=== PATIENT | female | born 1955 | race African-American/Black ===

== ENCOUNTER → 2017-02-23 | Outpatient (CLI) | payer OTHER ==
[~2017-02-23] MED LIST: AMLODIPINE-BEN1 EACH PO; BUMETANIDE 0.50.5 M1 PO; CLONIDINE HCL0.2 M2 PO; KEFLEX500 MG PO; SYNTHROID 0.10.1 M1 PO; ZPAK PO
== END ==
LOC: RAD 01:57
DX: Z12.31 Encounter for screening mammogram for malignant neoplasm of breast (principal)

== ENCOUNTER → 2018-03-01 | Outpatient (CLI) | payer OTHER | LOC: RAD 01:31 | DX: Z12.31 Encounter for screening mammogram for malignant neoplasm of breast (principal) ==

== ENCOUNTER → 2019-05-02 | Outpatient (CLI) | payer OTHER | LOC: ULTRA 12:38 | DX: R09.89 Other specified symptoms and signs involving the circulatory and respiratory systems (principal) ==

== ENCOUNTER → 2019-05-05 | Outpatient (CLI) | payer OTHER | LOC: ULTRA 14:42 | DX: M79.89 Other specified soft tissue disorders (principal); M79.662 Pain in left lower leg ==

== ENCOUNTER → 2020-03-05 | Outpatient (CLI) | payer OTHER | LOC: RAD 09:24 | DX: Z12.31 Encounter for screening mammogram for malignant neoplasm of breast (principal) ==

== ENCOUNTER → 2020-03-31 | Outpatient (CLI) | payer OTHER ==
[~2020-03-31] VITALS: Ht 177.8 cm; Wt 89.8 kg
[~2020-03-31] MED LIST changes: +ADVIL200 M3 PO; +ASPIRIN EC325 M1 PO; +BUMETANIDE 1 MG1 M1 PO; +CELEBREX 200 M200 MG PO; +COZAAR 25 MG TA25 M1 PO; +COZAAR100 MG PO; +DUEXIS 800-26.1 EACH PO; +LEVO-T75 MCG PO; +LEVOXYL25 MCG PO; +MELOXICAM15 MG PO; +ROXICODONE5 MG PO; +ZETIA10 MG PO
[2020-03-31 10:13] VITALS: BP 178/78
--- NOTE | 2020-03-31 10:39 | NUR ---
Pain Clinic Assessment: 1. History of Osteoarthritis: BACK BOTH LEGS History of Rheumatoid Arthritis: Not Applicable 2. Height: 5 ft. 10 in. 177.8 cm. Weight: 198.0 lb. oz. 89.812 kg. Patient's BMI: 28.4 3. Vital Signs: BP: 178/78 Pulse: 76 Resp: 16 Temp: 02 Sat: 100 ECG Mon: 4. Pain Intensity: 8 5. Fall Risk: Dizziness: N Needs help standing or walking: Y Fallen in the last 3 months: N Fall risk comments: 6. Patient on Blood Thinner: None 7. History of Hypertension: Y 8. Opioid Therapy greater than 6 weeks: N Opiate Contract Signed: 9. Risk Assessment Tool Provided: LOW RISK 08/29 10. Functional Assessment Tool: 11. Recreational Drug Use: Never Drug Type: Tobacco Use: Never Smoker Tobacco Type: Amount or Packs/day: How Many Years: Alcohol Use: No Frequency: Quant:
--- NOTE | 2020-04-13 08:23 | HPC ---
[facility] [address] [place] [address] PAIN MANAGEMENT CONSULTATION Name: ANGELES ANDREA Room #: REG CAROL PinoJonathanSyJonathan#: [id number] Admission: 03/31/20 Attend Phys: Dago Cross MD Discharge: Date of : 55 Report #: [id number] THIS REPORT FOR: cc: Robby Sánchez MD, Kirk D. MD Brown, N. Wayne MD ~ CC: Robby Cross DATE OF SERVICE: 03/31/2020 CHIEF COMPLAINT: Low back and left leg pain. HISTORY: The patient is a 64-year-old female who has been referred to the Pain Clinic because of pain and discomfort in the low back area. She has suffered from lumbar radicular pain in the past. She is having pain in the lower portion of her back that radiates down to the posterior portion of her legs. She rates the pain as an 8/10. Notes that the pain is worse when she is getting out of bed as well as while walking. Pain improves somewhat when she is sitting. She describes it as continuous, burning, aching and stabbing. She has been getting worse over the last year. She has been suffering from some bilateral knee pain. She has torn meniscus. She has undergone physical therapy. She has returned to the Pain Clinic for an evaluation. ALLERGIES: MORPHINE, NABUMETONE, TRAMADOL, SHRIMP. CURRENT MEDICATIONS: Cozaar 100 mg, bumetanide 1 mg, clonidine 0.2 mg b.i.d., Zetia, ibuprofen 200 mg, Deuxis 800/26.6 t.i.d., meloxicam 15 mg, and levothyroxine 75 mcg. PAST MEDICAL HISTORY: Thyroid disease, colon problems, and hypertension. PAST SURGICAL HISTORY: Hysterectomy, bilateral carpal tunnel surgery 2004, rectocele, cystocele, left knee surgery 2009, 2018, right knee surgery, 07/2019. 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 REVIEW OF SYSTEMS: GENERAL: Good health, recent weight changes, decreased appetite, wears glasses, constipation, varicose veins, thyroid disease. LABORATORY DATA: No new laboratory values are available, but MRI dated 01/2008 reveals large left lateral herniated nucleus pulposus, HNP, L4-L5. Small central HNP, L5-S1. [address] [address] PAIN MANAGEMENT CONSULTATION Name: ANGELES ANDREA Room #: REG CLLien Michael#: [id number] Admission: 03/31/20 Attend Phys: Dago Cross MD Discharge: Date of : 55 Report #: [id number] PAIN CLINIC ASSESSMENT AND PQRS: 1. History of osteoarthritis in the back and involving both knees. 2. History of rheumatoid arthritis. The patient is not being treated for rheumatoid arthritis. 3. Height 5 feet 10 inch, weight 198 pounds, BMI is 28.4. 4. Vital signs: Blood pressure 178/78, pulse 76, respiratory rate 16, room air saturations 100%. 5. Pain intensity, 8/10. 6. Fall history: The patient has not fallen in the last 3 months. 7. Blood thinner. The patient is not on a blood thinning medication. 8. Hypertension. The patient is being treated for hypertension. 9. Opioids greater than 6 weeks. The patient receives medication from her primary physician. 10. Risk assessment tool, low for opioid use. 11. Functional assessment tool, 49/70. 12. Recreational drug use. The patient denies. 13. Tobacco: The patient has never smoked. 14. Alcohol. The patient denies frequent use of alcoholic beverages. PHYSICAL EXAMINATION: GENERAL: The patient is a well-developed, well-nourished black female, appears her stated age. She is alert and oriented x 3. Her affect is appropriate. Speech is fluent. HEENT: Normocephalic, atraumatic. Extraocular eye muscles intact. Sclerae nonicteric. Mucous membranes are moist. NECK: Without adenopathy or JVD. HEART: Regular rate. LUNGS: Clear to auscultation. ABDOMEN: Nontender. MUSCULOSKELETAL: The patient is without significant scoliosis, kyphosis or lordosis. The patient has pain and discomfort in lower portion of her back. Has pain that radiates down the lateral portion of her right leg down into the calf area and notes some pain and discomfort radiating down on the right lateral portion of her leg and can radiate down into the area of the calf. IMPRESSION: 1. Lumbar radiculopathy, L4-L5 area. 2. Thyroid disease. 3. Colon problems. 4. Hypertension. RECOMMENDATIONS: We discussed treatment options with the patient. Risks and benefits of an epidural steroid injection were discussed. The patient elects to proceed with an epidural steroid injection [address] [address] PAIN MANAGEMENT CONSULTATION Name: ANGELES ANDRAE Room #: VALENTINO Rodriguez#: [id number] Admission: 03/31/20 Attend Phys: Dago Cross MD Discharge: Date of : 55 Report #: [id number] PROCEDURE NOTE: The patient was taken to the procedure area. Her back had been sterilely prepped with a Betadine solution. We had discussed the risks and benefits of the procedure. We had used a model to indicate the area of probable pathology. The patient was then assisted in getting on the examination table. Her back was sterilely prepped with a Betadine solution. Fluoroscopy using anterior, posterior as well as lateral viewing were implemented. A 17-gauge Tuohy with loss of resistance technique was advanced into the L4-L5 area, after this area had been sterilely prepped and infiltrated with 0.25% bupivacaine using a 25-gauge needle. After appropriate placement, a total of 80 mg Depo-Medrol, 40 mg triamcinolone and 2 mL of 0.25% bupivacaine was injected. The patient tolerated the procedure well. She remained in the Pain Clinic for an appropriate amount of time. A total of 13 seconds fluoro time was used. The patient's pain decreased to 0 at the time of discharge. She will follow up in the future as needed. <ELECTRONICALLY SIGNED> By: Dago Cross MD 04/13/20 0823 [id number] Dago Cross MD /nt
== END | disposition home or self-care (01) ==
LOC: PAIN 06:51
PROVIDERS: ATTEND Anesthesiology Pain Medicine
DX: M54.16 Radiculopathy, lumbar region (principal); G89.29 Other chronic pain; I10 Essential (primary) hypertension; E07.9 Disorder of thyroid, unspecified; M19.90 Unspecified osteoarthritis, unspecified site; Z98.890 Other specified postprocedural states; Z79.899 Other long term (current) drug therapy; Z88.8 Allergy status to other drugs, medicaments and biological substances

== ENCOUNTER → 2020-04-30 | Outpatient (CLI) | payer OTHER ==
[~2020-04-30] VITALS: Ht 177.8 cm; Wt 87.4 kg
[2020-04-30 08:52] VITALS: BP 148/84
--- NOTE | 2020-04-30 09:02 | NUR ---
Pain Clinic Assessment: 1. History of Osteoarthritis: BACK BOTH LEGS History of Rheumatoid Arthritis: Not Applicable 2. Height: 5 ft. 10 in. 177.8 cm. Weight: 192.6 lb. oz. 87.363 kg. Patient's BMI: 27.6 3. Vital Signs: BP: 148/84 Pulse: 76 Resp: 16 Temp: 02 Sat: 100 ECG Mon: 4. Pain Intensity: 8 5. Fall Risk: Dizziness: N Needs help standing or walking: Y Fallen in the last 3 months: N Fall risk comments: 6. Patient on Blood Thinner: None 7. History of Hypertension: Y 8. Opioid Therapy greater than 6 weeks: N Opiate Contract Signed: 9. Risk Assessment Tool Provided: LOW RISK 08/29 10. Functional Assessment Tool: 11. Recreational Drug Use: Never Drug Type: Tobacco Use: Never Smoker Tobacco Type: Amount or Packs/day: How Many Years: Alcohol Use: No Frequency: Quant:
== END | disposition home or self-care (01) ==
LOC: PAIN 06:53
PROVIDERS: ATTEND Anesthesiology Pain Medicine
DX: M54.16 Radiculopathy, lumbar region (principal); G89.29 Other chronic pain; Z98.890 Other specified postprocedural states; Z79.899 Other long term (current) drug therapy; Z88.8 Allergy status to other drugs, medicaments and biological substances

== ENCOUNTER → 2020-07-21 | Outpatient (CLI) | payer OTHER ==
[~2020-07-21] VITALS: Ht 177.8 cm; Wt 83.6 kg
[~2020-07-21] MED LIST changes: +APAP W/CODEINE1 TA2 PO; +MEDROLDOSEPACK PO
[2020-07-21 08:50] VITALS: BP 157/83
--- NOTE | 2020-07-21 09:11 | NUR ---
Pain Clinic Assessment: 1. History of Osteoarthritis: BACK BOTH LEGS History of Rheumatoid Arthritis: Not Applicable 2. Height: 5 ft. 10 in. 177.8 cm. Weight: 184.2 lb. oz. 83.553 kg. Patient's BMI: 26.4 3. Vital Signs: BP: 157/83 Pulse: 85 Resp: 20 Temp: 02 Sat: 100 ECG Mon: 4. Pain Intensity: 8 5. Fall Risk: Dizziness: N Needs help standing or walking: Y Fallen in the last 3 months: Y Fall risk comments: 6. Patient on Blood Thinner: None 7. History of Hypertension: Y 8. Opioid Therapy greater than 6 weeks: N Opiate Contract Signed: 9. Risk Assessment Tool Provided: LOW RISK 08/29 10. Functional Assessment Tool: 11. Recreational Drug Use: Never Drug Type: Tobacco Use: Never Smoker Tobacco Type: Amount or Packs/day: How Many Years: Alcohol Use: No Frequency: Quant:
== END | disposition home or self-care (01) ==
LOC: PAIN 06:40
PROVIDERS: ATTEND Anesthesiology Pain Medicine
DX: M54.16 Radiculopathy, lumbar region (principal); G89.29 Other chronic pain; E07.9 Disorder of thyroid, unspecified; I10 Essential (primary) hypertension; M19.90 Unspecified osteoarthritis, unspecified site; Z98.890 Other specified postprocedural states; Z90.710 Acquired absence of both cervix and uterus; Z79.899 Other long term (current) drug therapy

== ENCOUNTER 2020-08-21 11:42 | Emergency (ER) | payer OTHER ==
[~2020-08-21] VITALS: Ht 177.8 cm; Wt 81.7 kg
[~2020-08-21 11:42] MED LIST changes: -APAP W/CODEINE1 TA2 PO; -MEDROLDOSEPACK PO
[2020-08-21] MEDS ORDERED: MEDROLDOSEPACK PO (14:05)
[2020-08-21] MEDS ORDERED: APAP W/CODEINE1 TA2 PO (14:05)
[2020-08-21 14:12] VITALS: BP 185/69
== END 2020-08-21 14:14 | disposition home or self-care (01) ==
LOC: ER 11:42
DX: M54.32 Sciatica, left side (principal); Z90.711 Acquired absence of uterus with remaining cervical stump; Z79.899 Other long term (current) drug therapy; Z98.890 Other specified postprocedural states; Z88.5 Allergy status to narcotic agent; Z88.8 Allergy status to other drugs, medicaments and biological substances; Z91.013 Allergy to seafood

== ENCOUNTER 2020-09-04 09:59 | Emergency (ER) | payer OTHER ==
[~2020-09-04] VITALS: Ht 175.3 cm; Wt 81.7 kg
[~2020-09-04 09:59] MED LIST changes: +APAP W/CODEINE1 TA2 PO; +MEDROLDOSEPACK PO
[2020-09-04 10:07] VITALS: BP 198/106
== END 2020-09-04 10:40 | disposition home or self-care (01) ==
LOC: ER 09:59
DX: M54.32 Sciatica, left side (principal); M53.86 Other specified dorsopathies, lumbar region; I10 Essential (primary) hypertension; Z90.710 Acquired absence of both cervix and uterus; Z79.1 Long term (current) use of non-steroidal anti-inflammatories (NSAID); Z79.899 Other long term (current) drug therapy; Z88.5 Allergy status to narcotic agent; Z88.8 Allergy status to other drugs, medicaments and biological substances; Z91.013 Allergy to seafood

== ENCOUNTER → 2020-09-08 | Outpatient (CLI) | payer OTHER ==
[~2020-09-08] VITALS: Ht 177.8 cm; Wt 83.3 kg
[2020-09-08 11:03] VITALS: BP 174/80
--- NOTE | 2020-09-08 11:20 | NUR ---
Pain Clinic Assessment: 1. History of Osteoarthritis: BACK BOTH LEGS History of Rheumatoid Arthritis: Not Applicable 2. Height: 5 ft. 10 in. 177.8 cm. Weight: 183.6 lb. oz. 83.280 kg. Patient's BMI: 26.3 3. Vital Signs: BP: 174/80 Pulse: 87 Resp: 20 Temp: 02 Sat: 100 ECG Mon: 4. Pain Intensity: 7 5. Fall Risk: Dizziness: N Needs help standing or walking: Y Fallen in the last 3 months: N Fall risk comments: 6. Patient on Blood Thinner: None 7. History of Hypertension: Y 8. Opioid Therapy greater than 6 weeks: N Opiate Contract Signed: 9. Risk Assessment Tool Provided: LOW RISK 08/29 10. Functional Assessment Tool: 11. Recreational Drug Use: Never Drug Type: Tobacco Use: Former Smoker Tobacco Type: Amount or Packs/day: How Many Years: Alcohol Use: No Frequency: Quant:
== END | disposition home or self-care (01) ==
LOC: PAIN 06:52
PROVIDERS: ATTEND Anesthesiology Pain Medicine
DX: M54.16 Radiculopathy, lumbar region (principal); G89.29 Other chronic pain; I10 Essential (primary) hypertension; E07.9 Disorder of thyroid, unspecified; M19.90 Unspecified osteoarthritis, unspecified site; Z98.890 Other specified postprocedural states; Z79.899 Other long term (current) drug therapy; Z90.710 Acquired absence of both cervix and uterus; Z88.8 Allergy status to other drugs, medicaments and biological substances

== ENCOUNTER → 2020-12-29 | Outpatient (CLI) | payer OTHER ==
[~2020-12-29] VITALS: Ht 177.8 cm; Wt 84.6 kg
[2020-12-29 08:51] VITALS: BP 164/80
--- NOTE | 2020-12-29 09:07 | NUR ---
Pain Clinic Assessment: 1. History of Osteoarthritis: BACK BOTH LEGS History of Rheumatoid Arthritis: Not Applicable 2. Height: 5 ft. 10 in. 177.8 cm. Weight: 186.4 lb. oz. 84.551 kg. Patient's BMI: 26.7 3. Vital Signs: BP: 164/80 Pulse: 68 Resp: 16 Temp: 02 Sat: 100 ECG Mon: 4. Pain Intensity: 8 5. Fall Risk: Dizziness: N Needs help standing or walking: Y Fallen in the last 3 months: N Fall risk comments: 6. Patient on Blood Thinner: None 7. History of Hypertension: Y 8. Opioid Therapy greater than 6 weeks: N Opiate Contract Signed: 9. Risk Assessment Tool Provided: LOW RISK 08/29 10. Functional Assessment Tool: 11. Recreational Drug Use: Never Drug Type: Tobacco Use: Former Smoker Tobacco Type: Amount or Packs/day: How Many Years: Alcohol Use: No Frequency: Quant:
== END | disposition home or self-care (01) ==
LOC: PAIN 07:05
PROVIDERS: ATTEND Anesthesiology Pain Medicine
DX: M54.16 Radiculopathy, lumbar region (principal); G89.29 Other chronic pain; I10 Essential (primary) hypertension; M19.90 Unspecified osteoarthritis, unspecified site; E07.9 Disorder of thyroid, unspecified; Z98.890 Other specified postprocedural states; Z87.891 Personal history of nicotine dependence; Z79.899 Other long term (current) drug therapy; Z90.710 Acquired absence of both cervix and uterus; Z88.8 Allergy status to other drugs, medicaments and biological substances

== ENCOUNTER → 2021-02-04 | Outpatient (CLI) | payer OTHER ==
[~2021-02-04] VITALS: Ht 177.8 cm; Wt 84.8 kg
[2021-02-04 13:09] VITALS: BP 164/80
--- NOTE | 2021-02-04 13:45 | NUR ---
Pain Clinic Assessment: 1. History of Osteoarthritis: BACK BOTH LEGS History of Rheumatoid Arthritis: Not Applicable 2. Height: 5 ft. 10 in. 177.8 cm. Weight: 187.0 lb. oz. 84.823 kg. Patient's BMI: 26.8 3. Vital Signs: BP: 164/80 Pulse: 65 Resp: 18 Temp: 02 Sat: 100 ECG Mon: 4. Pain Intensity: 4 5. Fall Risk: Dizziness: Y Needs help standing or walking: N Fallen in the last 3 months: N Fall risk comments: 6. Patient on Blood Thinner: None 7. History of Hypertension: Y 8. Opioid Therapy greater than 6 weeks: N Opiate Contract Signed: 9. Risk Assessment Tool Provided: LOW RISK 08/29 10. Functional Assessment Tool: 11. Recreational Drug Use: Never Drug Type: Tobacco Use: Former Smoker Tobacco Type: Amount or Packs/day: How Many Years: Alcohol Use: No Frequency: Quant:
== END | disposition home or self-care (01) ==
LOC: PAIN 11:54
PROVIDERS: ATTEND Anesthesiology Pain Medicine
DX: M54.16 Radiculopathy, lumbar region (principal); G89.29 Other chronic pain; I10 Essential (primary) hypertension; E07.9 Disorder of thyroid, unspecified; M19.90 Unspecified osteoarthritis, unspecified site; Z98.890 Other specified postprocedural states; Z79.899 Other long term (current) drug therapy; Z90.710 Acquired absence of both cervix and uterus; Z87.891 Personal history of nicotine dependence; Z88.8 Allergy status to other drugs, medicaments and biological substances

== ENCOUNTER 2021-04-05 21:08 | Inpatient (IN) | payer OTHER ==
[~2021-04-05] VITALS: Ht 177.8 cm; Wt 65.8 kg
[2021-04-05 21:13] VITALS: BP 269/127
[2021-04-05] MEDS ORDERED: ROSUVASTATIN CAL5 MG PO (21:24)
[2021-04-05] MEDS ORDERED: NORVASC5 MG PO (21:24)
[2021-04-05] MEDS ORDERED: CATAPRES0.2 MG PO (21:25)
[2021-04-05 22:13] LABS: ABSOLUTE NEUTROPHILS 3.3 thou/uL (1.4-8.2); BASOPHILS 0.4 % (0.0-2.0); EOSINOPHILS 3.5 % (0.0-3.0); HEMATOCRIT 37.6 % (37.0-47.0); HEMOGLOBIN 12.4 gm/dL (12.0-15.0); LYMPHOCYTES 36.9 % (24.0-44.0); MCH 30.6 pg (26.0-34.0); MCV 92.5 fL (80.0-100.0); MONOCYTES 6.5 % (1.0-8.0); PLATELET COUNT 238 thou/uL (150-400); POLYS 52.7 % (36.0-66.0); RBC 4.07 mil/uL (4.20-5.00); RDW 13.9 % (10.5-14.5); WBC 6.2 thou/uL (4.0-11.0)
[2021-04-05 22:14] LABS: CALCIUM 9.2 mg/dL (8.5-10.1); CREATININE 1.1 mg/dL (0.6-1.0); POTASSIUM 3.5 mmol/L (3.5-5.1)
[2021-04-05 22:20] LABS: ALBUMIN 3.6 g/dL (3.4-5.0); TOTAL BILIRUBIN 0.4 mg/dL (0.2-1.0); TOTAL PROTEIN 7.1 g/dL (6.4-8.2)
[2021-04-06] VITALS (9 sets, daily range): BP systolic 128–219; BP diastolic 56–127
[2021-04-06 01:13] LABS: CALCIUM 9.2 mg/dL (8.5-10.1); CREATININE 0.9 mg/dL (0.6-1.0); POTASSIUM 3.7 mmol/L (3.5-5.1)
--- NOTE | 2021-04-06 05:25 | NUR ---
PT ADMITTED TO ROOM 200 FROM ER, IV FLUIDS STARTED IN R AC, VSS, NO C/O PAIN, ASSESSMENT CHARTED, WILL CON'T TO MONITOR PER PPOC.
--- NOTE | 2021-04-06 07:11 | EKG ---
[place] [address] [facility] [place] [address] ELECTROCARDIOGRAM REPORT Name: ANGELES ANDREA Room #: 200-I ADM IN ..#: [id number] Admission: 04/05/21 Attend Phys: Jazzy Thompson Discharge: Date of : 55 Report #: [id number] [facility] ED Test Date: 2021-04-05 Test Time: 22:04:00 Pat Name: ANGELES ANDREA Department: Room: [facility] Gender: F Special Events Director: : 1955 Requested By: Rony Servin Order Number: [id number] MD: Uriel Mancuso Measurements Intervals [place] Rate: 66 P: 50 CT: 191 QRS: 25 QRSD: 94 T: 46 QT: 410 QTc: 430 Interpretive Statements Sinus rhythm Atrial premature complex Consider left ventricular hypertrophy No previous ECG available for comparison Electronically Signed On 04-06-2021 7:11:27 CDT by Uriel Mancuso [email or web address] <ELECTRONICALLY SIGNED> By: Uriel Mancuso MD, [facility] 04/06/21 0711 [id number] Uriel Mancuso MD, FACC /EPI
--- NOTE | 2021-04-06 18:45 | NUR ---
PT IS AXOX4, PLEASANT; C/O SOME PAIN HEADACHE AND FACE/NECK SWELLING; VSS, HX OF ELEVATED BP, AFEBRILE, SR ON THE MONITOR. DR FRANCO CONSULTED; PT ON ABX THERAPY, STEROIDS. POC IS TO CONTINUE ON ABX THERAPY; ASSESS FACE FOR CONTINUED OR INCREASED SWELLING. POSSIBILITY OF D/C 04/07/21. CONTINUE TO ASSESS TOLERANCE OF DIET. LOW FALL PRECAUTIONS IN PLACE. NO CONCERNS AT THIS TIME.
--- NOTE | 2021-04-07 03:14 | NUR ---
SLEPT MOST OF SHIFT. WORKING ON GOALS AND PLAN OF CARE FOR NOC. UP AD ANTONINA IN ROOM WITH STEADY GAIT. SWELLING DECREASING TO LEFT NECK AND FACE. DENIES COMPLAINTS OF SHORTNESS OF AIR. CONTINUE TO ASSES CLOSELY.
[2021-04-07 04:52] VITALS: BP 140/71
[2021-04-07 07:54] VITALS: BP 138/60
[2021-04-07] MEDS ORDERED: MEDROL DOSPAK21 TA1 PO (07:55)
[2021-04-07 08:24] VITALS: BP 138/60
[2021-04-07 08:49] VITALS: BP 138/60
--- NOTE | 2021-04-07 09:09 | NUR ---
PT IS AXOX4, PLEASANT; DENIES PAIN; VSS, AFEBRILE, SR ON MONITOR; MED SURG TELE. PT TO DISCHARGE THIS AM. DISCHARGE EDUCATION COMPLETED. PT COMMUNICATED UNDERSTANDING. PT TO D/C TO HOME WITH SPOUSE VIA PERSONAL VEHICLE. NO CONCERNS AT THIS TIME.
== END 2021-04-07 09:11 | disposition home or self-care (01) | DRG 155 ==
LOC: ER 21:08 → EROBS 23:32 → 2N 23:32
PROVIDERS: Emergency Medicine; Nurse Practitioner Family; ADMIT Hospitalist; ATTEND Hospitalist
DX: K11.20 Sialoadenitis, unspecified (principal); N17.9 Acute kidney failure, unspecified; I16.0 Hypertensive urgency; I10 Essential (primary) hypertension; E78.00 Pure hypercholesterolemia, unspecified; E03.9 Hypothyroidism, unspecified; E11.9 Type 2 diabetes mellitus without complications; E78.5 Hyperlipidemia, unspecified; T78.1XXA Other adverse food reactions, not elsewhere classified, initial encounter; X58.XXXA Exposure to other specified factors, initial encounter; Z20.822 Contact with and (suspected) exposure to COVID-19; Z88.8 Allergy status to other drugs, medicaments and biological substances; Z90.710 Acquired absence of both cervix and uterus; Z79.899 Other long term (current) drug therapy; Z88.5 Allergy status to narcotic agent; Z91.013 Allergy to seafood
CPT/HCPCS: 10081

== ENCOUNTER → 2021-04-08 | Outpatient (CLI) | payer OTHER ==
[~2021-04-08] MED LIST changes: +CATAPRES0.2 MG PO; +MEDROL DOSPAK21 TA1 PO; +NORVASC5 MG PO; +ROSUVASTATIN CAL5 MG PO
== END ==
LOC: BC 11:29
PROVIDERS: ATTEND Family Medicine
DX: Z12.31 Encounter for screening mammogram for malignant neoplasm of breast (principal)